=== PATIENT | female | born 2000 | race Hispanic/Latino ===

== ENCOUNTER 2022-01-10 18:37 | Emergency (ER) | payer OTHER ==
[~2022-01-10] VITALS: Ht 165.1 cm; Wt 59.0 kg
[2022-01-10] MEDS ORDERED: ACETAMINOPHEN 325 MG TAB PO ONE (19:00)
[2022-01-10] MEDS ORDERED: IBUPROFEN600 MG PO (19:50)
[2022-01-10] MEDS ORDERED: METHOCARBAMOL750 MG PO (19:50)
[2022-01-10 20:50] VITALS: BP 114/76
== END 2022-01-10 20:34 | disposition home or self-care (01) ==
LOC: ER 18:43
DX: M54.50 Low back pain, unspecified (principal); S93.492A Sprain of other ligament of left ankle, initial encounter; V43.62XA Car passenger injured in collision with other type car in traffic accident, initial encounter; Y92.488 Other paved roadways as the place of occurrence of the external cause
CPT/HCPCS: 72110; 81025; 99283